=== PATIENT | female | born 1965 | race American Indian/Alaskan Native ===

== ENCOUNTER 2018-06-29 09:05 | Outpatient (CLI) | payer BC ==
--- NOTE | 2018-07-02 14:11 | Magnetic Resonance Report ---
BILATERAL BREAST MRI WITHOUT AND WITH CONTRAST: 06/29/18 09:05:00 CLINICAL: Right breast cancer status post neoadjuvant chemotherapy. Biopsy on 01/29/18 revealed intraductal carcinoma grade III [id number], triple negative. COMPARISON:No recent imaging studies are available. Her pre-chemotherapy MRI at [place] described a 3.5 x 2.8 x 3.2 cm mass at 7 o'clock 8 cm from the nipple. TECHNIQUE: Axial 1.0-mm T1 without, axial high resolution 2.0-mm T2 and axial 1.0-mm dynamic Vibrant high-resolution postcontrast T1 fat saturation sequences on a 1.5 Jess magnet. The examination was performed with an 8 channel dedicated Sentin[employer] breast coil. Post processing with CAD and subtraction was performed on an [employer] workstation. 19.0 cc of Multihance was injected without incident for the contrast portion of the exam. Consent was obtained prior to the administration of the contrast. FINDINGS: Right: Minimal background parenchymal enhancement. No mass or suspicious enhancement. A single 3 mm focus of benign enhancement in a linear scar near a biopsy clip in the lower outer breast. No suspicious lymph nodes. There is a small right axillary lymph node with thin cortex and a biopsy clip. No suspicious lymph nodes. Left: Minimal background parenchymal enhancement. No mass or suspicious enhancement. No suspicious lymph nodes. IMPRESSION: Negative study with a complete MRI response to chemotherapy. No suspicious findings. BI-RADS 6 -- Known Cancer
== END 2018-06-29 09:06 | disposition home or self-care (01) ==
LOC: SPVIMAG 09:05
PROVIDERS: ATTEND Surgery
DX: C50.511 Malignant neoplasm of lower-outer quadrant of right female breast (principal)
CPT/HCPCS: A9577; C8908; 77049

== ENCOUNTER 2018-07-24 08:03 | Outpatient (CLI) | payer BC ==
--- NOTE | 2018-07-24 10:08 | Mammography Report ---
RIGHT DIGITAL DIAGNOSTIC MAMMOGRAM with CAD and RIGHT BREAST ULTRASOUND: 07/24/18 08:03:00 CLINICAL: Right breast cancer followup after neoadjuvant chemotherapy. Pretreatment imaging was at [facility]. The mammographic mass at 7 o'clock 8 cm from the nipple was reported to measure 3 cm maximum. It measured 2.9 cm maximum by ultrasound and 3.5 cm maximum diameter by MRI. COMPARISON:No images available. FINDINGS: The breast is mostly fatty.No mass, architectural distortion or suspicious calcifications. An upper outer biopsy marker corresponds to a biopsy site reported to be benign. A second marker is identified slightly below the nipple line on the MLO view approximately 11 cm from the nipple. This appears to correlate with the site of the cancer. This clip is only identified on the MLO view and not on CC or exaggerated CC views. Ultrasound of the right breast (including all four quadrants and the retroareolar area) was performed. A biopsy clip identified at 10 o'clock 7 cm from the nipple correlates with previous benign biopsy. A relatively large clip is identified at 7:30 o'clock 8 cm from the nipple and this correlates with the known cancer. A 1.5 x 1.4 x 0.4 cm irregular solid hypoechoic mass is identified near this clip. IMPRESSION: A positive response to chemotherapy with complete mammographic response and a complete or near complete response by ultrasound with a residual 1.5 x 1.4 x 0.4 cm mass by ultrasound. BI-RADS CATEGORY: 6 -- Known Cancer COMMENT: 1. Dense breast tissue, i.e., adenosis, fibrocystic changes, etc., may obscure an underlying neoplasm. 2. Approximately 10% of cancers are not detected with mammography. 3. A negative mammography report should not delay biopsy if a clinically suspicious mass is present. COMMENT: Patient follow-up letters are generated by our [employer] application.
== END 2018-07-24 08:04 | disposition home or self-care (01) ==
LOC: SPVWC 08:03
PROVIDERS: ATTEND Surgery
DX: C50.511 Malignant neoplasm of lower-outer quadrant of right female breast (principal)

== ENCOUNTER 2018-08-22 06:24 | Day surgery (SDC) | payer BC ==
[~2018-08-22 06:24] MED LIST: ANCEF/STERILE WATER 2 GM/20 ML 2 GM/20 ML SYRINGE IV NR; NACL BACTERIOSTATIC INFILTRATI ONE
[2018-08-22] MEDS ORDERED: SUBLIMAZE IV ONE (06:29)
[2018-08-22] MEDS ORDERED: LACTATED RINGERS 1,000 ML IV SCH (07:00)
[2018-08-22] MEDS ORDERED: NEURONTIN PO NR (07:00)
[2018-08-22] MEDS ORDERED: VERSED IV NR (07:00)
--- NOTE | 2018-08-22 07:22 | Anesthesia Consultation ---
Anesthesia Consult and Med Hx Date of service: 08/22/18 - Airway Anesthetic Teeth Evaluation: Poor, Partials (permanent) ROM Head & Neck: Adequate Mental/Hyoid Distance: Adequate Mallampati Class: Class III Intubation Access Assessment: Possibly Difficult - Pulmonary Exam CTA: Yes - Cardiac Exam Cardiac Exam: RRR (tachycardic) - Pre-Operative Health Status ASA Pre-Surgery Classification: ASA3 Proposed Anesthetic Plan: General Nerve Block: PEC - Pulmonary Hx Smoking: No Hx Respiratory Symptoms: No - Cardiovascular System Hx Hypertension: Yes (took amlodipine today) Hx Heart Attack/AMI: No Hx Percutaneous Transluminal Coronary Angioplasty (PTCA): No Hx Cardia Arrhythmia: No Hx Pacemaker: No Hx Internal Defibrillator: No - Central Nervous System Hx Seizures: No CVA: No Hx Psychiatric Problems: No - Gastrointestinal Hx Gastroesophageal Reflux Disease: No - Endocrine Hx Renal Disease: No Hx Liver Disease: No Hx Insulin Dependent Diabetes: No Hx Non-Insulin Dependent Diabetes: Yes Hx Thyroid Disease: No - Hematic Hx Anemia: No - Other Systems Hx Cancer: Yes (Breast) Hx Obesity: No - Additional Comments Anesthesia Medical History Comments: No hx anesthetic complications. Tachycardia noted on exam. EKG shows ST in the 110s with occasional PVCs. Patient complains of anxiety but denies chest pain, dyspnea or dizziness.
[2018-08-22] MEDS ORDERED: DECADRON ONE ×2 (07:25→08:12)
[2018-08-22] MEDS ORDERED: MARCAINE 0.5% INFILTRATI ONE (07:25)
[2018-08-22] MEDS ORDERED: HumuLIN R ONE (07:28)
[2018-08-22] MEDS ORDERED: HumuLIN R SUB-Q ONE (07:30)
[2018-08-22] MEDS ORDERED: DILAUDID IV PRN (07:30)
--- NOTE | 2018-08-22 07:42 | Anesthesia Day of Surgery ---
Anesthesia Day of Surgery - Day of Surgery Patient Examined: Yes Patient H&P Reviewed: Yes Patient is NPO: Yes
[2018-08-22] MEDS ORDERED: ZOFRAN ONE ×2 (08:12→13:59)
[2018-08-22] MEDS ORDERED: DIPRIVAN 10 MG/ML IV ONE (08:12)
[2018-08-22] MEDS ORDERED: SUBLIMAZE ONE ×2 (08:12→10:58)
--- NOTE | 2018-08-22 08:48 | Ultrasound Report ---
ULTRASOUND GUIDED NEEDLE LOCALIZATION AND HOOKWIRE PLACEMENT RIGHT BREAST:08/22/18 CLINICAL: Right breast cancer at 7:30 o'clock 8 cm from the nipple. COMPARISON: 07/24/18 ultrasound and mammogram FINDINGS: Using ultrasound guidance, 1% lidocaine local anesthesia and sterile technique, a 5.0-cm Gold needle with a hookwire was placed from a lateral approach to localize a 1 cm mass with a biopsy clip at 7:30 o'clock 9 cm from the nipple. The hookwire was deployed and the needle was removed. Images showed the wire extending into the mass but not through the mass which is at the chest wall. The patient tolerated the procedure well and there were no apparent complications. No mammographic images were obtained. IMPRESSION: Uncomplicated ultrasound guided hookwire placement right breast.
[2018-08-22] MEDS ORDERED: NACL P/F VIAL (10 ML) 10 ML ONE (09:35)
[2018-08-22] MEDS ORDERED: METHYLENE BLUE ONE (09:35)
[2018-08-22] MEDS ORDERED: NEO SYNEPHRINE ONE (09:39)
[2018-08-22] MEDS ORDERED: NACL P/F VIAL (10 ML) IV ONE (10:08)
[2018-08-22] MEDS ORDERED: METHYLENE BLUE IRRIGATION ONE (10:08)
[2018-08-22] MEDS ORDERED: WATER FOR IRRIG STERILE IR ONE (10:09)
--- NOTE | 2018-08-22 11:55 | Mammography Report ---
SPECIMEN RADIOGRAPH RIGHT BREAST: 08/22/18 06:24:00 CLINICAL: Surgical excision of a known cancer. FINDINGS: The targeted mass with a biopsy clip and a hookwire are identified within the specimen. IMPRESSION: Excision of the targeted lesion.
--- NOTE | 2018-08-22 12:10 | Short Stay Summary ---
Short Stay Documentation Date of service: 08/22/18 - History H&P: obtained from office - Allergies and Medications Current Medications: Allergies No Known Allergies Allergy (Verified 08/21/18 12:49) Home Medications Medication Instructions Recorded Confirmed Last Taken Type Lisinopril/Hydrochlorothiazide 1 each PO DAILY 08/21/18 08/22/18 08/21/18 18:00 History [Zestoretic 10-12.5 mg Tablet] amLODIPine [Norvasc] 10 mg PO DAILY 08/21/18 08/22/18 08/22/18 05:00 History glipiZIDE [Glucotrol] 5 mg PO BID 08/21/18 08/22/18 08/21/18 18:00 History metFORMIN [Glucophage] 500 mg PO BID 08/21/18 08/22/18 08/21/18 18:00 History HYDROcodone/APAP 5-325 [[place] 1 each PO Q6HR PRN #25 tablet 08/22/18 Unknown Rx 5/325] Active Medications Celecoxib (Celebrex) 200 mg PO PREOP NR Stop: 08/22/18 23:59 Last Admin: 08/22/18 07:25 Dose: 200 mg Documented by: Gabapentin (Neurontin) 300 mg PO PREOP NR Stop: 08/22/18 23:59 Last Admin: 08/22/18 07:25 Dose: 300 mg Documented by: Hydromorphone HCl (Dilaudid) 0.5 mg IV Q10MIN PRN PRN Reason: Pain , Severe (7-10) Stop: 08/22/18 18:00 Cefazolin Sodium (Ancef/Sterile Water 2 Gm/20 Ml) 2 gm in 20 mls @ 80 mls/hr IV PREOP NR; Protocol Stop: 08/22/18 23:00 Lactated Ringer's (Lactated Ringers) 1,000 mls @ 100 mls/hr IV DIRECT RALEIGH Last Admin: 08/22/18 07:35 Dose: 100 mls/hr Documented by: Midazolam HCl (Versed) 2 mg IV PREOP NR Stop: 08/22/18 23:59 Last Admin: 08/22/18 08:19 Dose: 2 mg Documented by: - Brief post op/procedure progress note Date of procedure: 08/22/18 Pre-op diagnosis: Right breast cancer of the lower outer quadrant Post-op diagnosis: same Procedure: Right needle localization partial mastectomy with SLNB Anesthesia: GETA Findings: Right mass and wire present; x3 SLNs Surgeon: HEBERT AUSTIN Estimated blood loss: minimal Pathology: list (right partial mastectomy; x3 SLNs) Specimen disposition: to lab Condition: stable - Disposition Condition at discharge: Good Disposition: DC-01 TO HOME OR SELFCARE Short Stay Discharge Plan Activity: other (no heavy lifting) Diet: regular Wound: keep clean and dry (may shower in 48 hours; no baths, pools or lakes; wear breast binder; do not rub or scrub incision) Follow up with: ANNMARIE ALTAMIRANO MD [Primary Care Provider] - 7 Days HEBERT AUSTIN MD [Staff Physician] - 7 Days Prescriptions: HYDROcodone/APAP 5-325 [[place] 5/325] 1 each PO Q6HR PRN #25 tablet PRN Reason: Pain
--- NOTE | 2018-08-22 12:17 | Operative Report ---
Operative Report Operative Report: Operative Report: August 22, 2018 Preoperative diagnosis: Right breast cancer of the lower outer quadrant Postoperative diagnosis: Same Procedure: Right partial mastectomy of the lower outer quadrant and SLNB Surgeon: Joya Lee MD Anesthesia: General Findings: Right breast mass and clip present within radiograph specimen; x3 SLNs Complications: None Drains: None EBL: Minimal Disposition: PACU in good condition Indications for operative procedure: This is a 53 year old lady with newly diagnosed right breast cancer of the lower outer quadrant, Stage II [id number] triple negative. She recently completed neoadjuvant chemotherapy. Recommendations are to proceed with breast conservation. She understands the role of adjuvant radiation therapy. She wished to proceed with the above procedure. Procedure in detail: Anesthesia placed right pectoral block. Patient was then taken to the operating room. Gen. anesthesia was administered. The right nipple was injected with radioisotope and 1 cc of methylene blue dye with 1 cc of saline. Right breast and axilla were prepped and draped in the normal sterile operative fashion. Prior area of right breast mass was located at the 7:00 position 8 cm from the nipple. Timeout was performed. Gamma probe was inserted into the axilla. The area of hot spot was identified. A right axillary incision was made with a 15 blade knife with dissection taken down to the subcutaneous tissues. The axillary fascia was opened with the Bovie cautery. 3 SLNs were identified with one node with blue dye present. All remaining counts were less than 10% of the highest count. Lymph nodes were sent to pathology for permanent processing. Hemostasis was obtained in the right axillary cavity. Axillary cavity was appropriately irrigated and suctioned. Hemostasis was noted. Axillary fascia was approximated and closed using interrupted 3-0 Vicryl and the skin brought together and closed using a running 4-0 Monocryl followed by skin affix. Attention was then taken towards the right breast. Ultrasound was used to jorje the area of incision, known cancer at the 7:00 position 8 cm from the nipple. A breast incision was made with a 15 blade knife around the 7:00 position and dissection taken down to subcutaneous tissues. The wire was removed laterally from the skin. First began raising of the superior flap with dissection take down to the pectoralis muscle, followed by raising of the inferior flap, medial flap and lateral flap with all flaps taken down to the pectoralis muscle. The breast area of concern was appropriately removed posteriorly from the pectoralis muscle with the aid of the Bovie cautery. Ultrasound was used and I was concerned of the anterior margin being too close and then proceeded with revised anterior margin to ensure adquate surgical margins. The wire was not encountered. Specimen was marked and then sent to pathology and radiology; radiograph specimen with mass, wire and clip present. Breast cavity was irrigated and hemostasis was obtained. The posterior deep breast tissues were approximated and closed using interrupted 3-0 Vicryl. The subcutaneous tissues were approximated and closed using an interrupted 3-0 Vicryl followed by closing of the skin with a running 4-0 Monocryl and skin affix. The patient tolerated surgery very well and she was awaken from anesthesia without any complication and transported to PACU in good condition.
[2018-08-22] MEDS ORDERED: HumuLIN R IV ONE ×2 (12:33→14:03)
[2018-08-22] MEDS ORDERED: NORCO 5/325 PO PRN (12:42)
[2018-08-22 13:32] VITALS: BP 146/89
[2018-08-22] MEDS ORDERED: ZOFRAN IV ONE (14:05)
--- NOTE | 2018-08-22 16:39 | Post Anesthesia Evaluation ---
- Post Anesthesia Evaluation Patient Participated: Yes Airway Patent: Yes Stable Respiratory Function: Yes Nausea/Vomiting: No Temp > 96.8F: Yes Pain Manageable: Yes Adequeate Hydration: Yes Anesthesia Complications: No
== END 2018-08-22 15:00 | disposition home or self-care (01) ==
LOC: OR 06:24
PROVIDERS: ATTEND Surgery
DX: C50.511 Malignant neoplasm of lower-outer quadrant of right female breast (principal); E11.51 Type 2 diabetes mellitus with diabetic peripheral angiopathy without gangrene; G62.9 Polyneuropathy, unspecified; Z79.899 Other long term (current) drug therapy; Z79.84 Long term (current) use of oral hypoglycemic drugs; Z98.891 History of uterine scar from previous surgery; Z72.89 Other problems related to lifestyle; Z80.0 Family history of malignant neoplasm of digestive organs; Z79.01 Long term (current) use of anticoagulants
CPT/HCPCS: 19285; 19301; 36415; 38525; 38792; 64450; 76098; 78800; 82962; 84132; 88307; 88341; 93005; 93010; A9541; J0690; J1100; J1170; J2250; J2370; J2405; J2704; J3010; J7120; Q9968; 88333; 88342; J1815

== ENCOUNTER 2018-09-19 14:36 | Outpatient (CLI) | payer BC | END 2018-09-19 14:37 | disposition home or self-care (01) | LOC: LABHHL 14:36 | PROVIDERS: ATTEND Surgery | DX: T88.8XXA Other specified complications of surgical and medical care, not elsewhere classified, initial encounter (principal); I10 Essential (primary) hypertension; E11.9 Type 2 diabetes mellitus without complications; Y83.9 Surgical procedure, unspecified as the cause of abnormal reaction of the patient, or of later complication, without mention of misadventure at the time of the procedure | CPT/HCPCS: 87075; 87116 ==

== ENCOUNTER 2019-01-29 08:00 | Outpatient (CLI) | payer BC ==
--- NOTE | 2019-01-29 08:43 | Mammography Report ---
DIGITAL DIAGNOSTIC MAMMOGRAM WITH CAD, -- 01/29/2019 INDICATION: History of right breast cancer status post right partial mastectomy 08/22/2018 TECHNIQUE: Digital bilateral mammographic imaging was performed. This examination was interpreted with the benefit of Computer-aided Detection analysis. COMPARISON: 07/24/2018 and 04/28/2011 FINDINGS: Breast Density: The right breast is heterogeneously dense and smaller than the left. Right outer post erior postsurgical scar and moderate skin thickening. A right outer biopsy clip. Scattered fibrogland ular densities of the left breast. There is no evidence of dominant mass, suspicious calcifications o r suspicious architectural distortion in either breast. IMPRESSION: No mammographic evidence of malignancy. Follow up recommendation: Routine yearly BI-RADS Category 2: Benign. A "normal" or negative report should not discourage follow up or biopsy of a clinically significant f inding. A written summary of these findings will be mailed to the patient. The patient will be entered into a mammography reporting system which will generate a reminder letter for the patient's next appointmen t at the appropriate interval. According to the [employer], yearly mammograms are recommended starting at age 40 and continuing as long as a woman is in good health. Breast MRI is recommended for women with an asher roximately 20-25% or greater lifetime risk of breast cancer, including women with a strong family his tory of breast or ovarian cancer and women who have been treated for Hodgkin's disease. Signer Name: Shiraz Sandoval MD Signed: 01/29/2019 8:39 AM Workstation Name: [id number]
== END 2019-01-29 08:01 | disposition home or self-care (01) ==
LOC: SPVWC 08:00
PROVIDERS: ATTEND Surgery
DX: R92.8 Other abnormal and inconclusive findings on diagnostic imaging of breast (principal); Z85.3 Personal history of malignant neoplasm of breast; I10 Essential (primary) hypertension; E11.9 Type 2 diabetes mellitus without complications
CPT/HCPCS: 77066

== ENCOUNTER 2019-07-30 08:57 | Outpatient (CLI) | payer BC ==
--- NOTE | 2019-07-30 09:54 | Mammography Report ---
DIGITAL DIAGNOSTIC MAMMOGRAM WITH CAD, -- 07/30/2019 INDICATION: Patient presents for routine follow-up following right lumpectomy for breast cancer. No c urrent complaints. TECHNIQUE: Digital right mammographic imaging was performed. This examination was interpreted with the benefit of Computer-aided Detection analysis. COMPARISON: Prior mammograms 01/29/2019 and 07/24/2018 FINDINGS: Breast Density: The breasts are heterogeneously dense, which may obscure small masses. There is no evidence of dominant mass, suspicious calcifications or architectural distortion in the r ight breast. There is stable postlumpectomy change seen in the right breast and a stable biopsy clip in the right breast. There has been no significant change compared with the most recent examination. A Mediport is partially visualized overlying the right axilla. IMPRESSION: Follow up recommendation: Back to schedule. BI-RADS Category 2: Benign. A "normal" or negative report should not discourage follow up or biopsy of a clinically significant f inding. A written summary of these findings will be mailed to the patient. The patient will be entered into a mammography reporting system which will generate a reminder letter for the patient's next appointmen t at the appropriate interval. According to the [employer], yearly mammograms are recommended starting at age 40 and continuing as long as a woman is in good health. Breast MRI is recommended for women with an asher roximately 20-25% or greater lifetime risk of breast cancer, including women with a strong family his tory of breast or ovarian cancer and women who have been treated for Hodgkin's disease. Signer Name: Danyell Torres MD Signed: 07/30/2019 9:49 AM Workstation Name: [id number]
== END 2019-07-30 08:58 | disposition home or self-care (01) ==
LOC: SPVWC 08:57
PROVIDERS: ATTEND Surgery
DX: Z08 Encounter for follow-up examination after completed treatment for malignant neoplasm (principal); Z85.3 Personal history of malignant neoplasm of breast

== ENCOUNTER 2020-02-11 09:23 | Outpatient (CLI) | payer BC ==
--- NOTE | 2020-02-11 12:24 | Mammography Report ---
DIGITAL SCREENING MAMMOGRAM WITH CAD, 02/11/2020 CLINICAL INFORMATION / INDICATION: Routine screening mammography. SCREENING MAMMO TECHNIQUE: Digital bilateral 2D mammography was obtained in the craniocaudal and mediolateral obliqu e projections. This examination was interpreted with the benefit of Computer-Aided Detection analysis . COMPARISON: 07/24/18 through 07/30/2019. FINDINGS: Breast Density: There are scattered areas of fibroglandular density. No dominant mass, suspicious calcifications, or architectural distortion in the left breast. Postlumpectomy and radiation changes in the right breast are stable. A right biopsy clip is again not ed. No new abnormality is seen. IMPRESSION: No mammographic evidence of malignancy. Follow up recommendation: Routine yearly BI-RADS Category 2: Benign. A "normal" or negative report should not discourage follow up or biopsy of a clinically significant f inding. A written summary of these findings will be mailed to the patient. The patient will be entered into a mammography reporting system which will generate a reminder letter for the patient's next appointmen t at the appropriate interval. The [employer] recommends yearly mammograms starting at age 40 and continuing as l mirlande as a woman is in good health. Breast MRI is recommended for women with an approximate 20-25% or greater lifetime risk of breast cancer, including women with a strong family history of breast or ova [place] cancer or who have been treated for Hodgkin's disease. Signer Name: Tereso Rich MD Signed: 02/11/2020 10:04 AM Workstation Name: [id number]
== END 2020-02-11 09:24 | disposition home or self-care (01) ==
LOC: SPVWC 09:23
PROVIDERS: ATTEND Surgery
DX: Z12.31 Encounter for screening mammogram for malignant neoplasm of breast (principal)
CPT/HCPCS: 77067

== ENCOUNTER 2020-08-10 08:31 | Outpatient (CLI) | payer BC ==
--- NOTE | 2020-08-10 09:33 | Mammography Report ---
DIGITAL DIAGNOSTIC MAMMOGRAM WITH CAD CONVENTIONAL, 08/10/2020 CLINICAL INFORMATION / INDICATION: Patient has a history of right breast cancer status post lumpectom y in 2019. Patient has no current complaints. ABNORMAL FINDINGS R92.8 TECHNIQUE: Digital right mammographic imaging was performed. This examination was interpreted with the benefit of Computer-aided Detection analysis. COMPARISON: Prior mammograms 02/11/2020, 07/30/2019, and 01/29/2019 FINDINGS: Breast Density: There are scattered areas of fibroglandular density. No dominant mass, suspicious calcifications or architectural distortion in the right breast. There is stable benign postlumpectomy change seen in the right breast and a stable biopsy clip in the right breast. There has been no significant change compared with the prior examinations. IMPRESSION: No mammographic evidence of malignancy. Follow up recommendation: Back to schedule. BI-RADS Category 2: Benign. A "normal" or negative report should not discourage follow up or biopsy of a clinically significant f inding. A written summary of these findings will be mailed to the patient. The patient will be entered into a mammography reporting system which will generate a reminder letter for the patient's next appointmen t at the appropriate interval. According to the [employer], yearly mammograms are recommended starting at age 40 and continuing as long as a woman is in good health. Breast MRI is recommended for women with an asher roximately 20-25% or greater lifetime risk of breast cancer, including women with a strong family his tory of breast or ovarian cancer and women who have been treated for Hodgkin's disease. Signer Name: Danyell Torres MD Signed: 08/10/2020 9:28 AM Workstation Name: [email or web address]
== END 2020-08-10 08:32 | disposition home or self-care (01) ==
LOC: SPVWC 08:31
PROVIDERS: ATTEND Surgery
DX: R92.8 Other abnormal and inconclusive findings on diagnostic imaging of breast (principal)